=== PATIENT | female | born 1950 | race Caucasian/White ===

== ENCOUNTER 2024-06-18 05:57 | Day surgery (SDC) | payer OTHER ==
[~2024-06-18] VITALS: Ht 154.9 cm; Wt 59.1 kg
[2024-06-18] VITALS (16 sets, daily range): BP systolic 114–180; BP diastolic 55–105
[~2024-06-18 05:57] MED LIST: CLON.5 PO; ESCI20 PO; HYDROCODONE-AC473 ML; MOBIC7.5 MG PO; Norco 5-325 Ta1 EACH PO; PREG100 PO; TRAZ50 PO
[2024-06-18] MEDS ORDERED: CeFAZolin Sodium 2,000 MG in NS 100 ML IV SCH ×2 (06:10→16:00)
[2024-06-18] MEDS ORDERED: OxyCODONE HCL 10 MG TABCR PO SCH (06:10)
[2024-06-18] MEDS ORDERED: Vancomycin HCL 1,000 MG in NS 250 ML IV SCH ×2 (06:10→19:00)
[2024-06-18] MEDS ORDERED: Acetaminophen 500 MG Tab PO SCH ×2 (06:10→08:00)
[2024-06-18] MEDS ORDERED: Lactated Ringer's 1,000 ML IV SCH ×2 (06:10→06:50)
[2024-06-18] MEDS ORDERED: Ropivacaine 0.5% HCl/Pf 123.125 MG,EPINEPHrine HCL 0.25 MG,Ketorolac Tromethamine 15 MG... INFIL SCH (06:10)
[2024-06-18] MEDS ORDERED: Tranexamic Acid 100 ML IV SCH (06:10)
[2024-06-18] MEDS ORDERED: Chlorhexidine Mouth Care 15 ML UDC MT SCH (06:10)
--- NOTE | 2024-06-18 06:39 | NUR ---
INTO SDS VIA WHEELCHAIR. PT REPORTS 11/10 RIGHT HIP PAIN. PT ASKING IMMEDIATELY WHEN SHE WILL BE GETTING MEDICATION FOR ANXIETY. ENCOURAGED PT TO ADDRESS ANXIETY WITH ANESTHESIA PROVIDER. HISTORY AND ALLERGIES REVIEWED. LUNGS CLEAR. FAINT MURMUR AUSCULTATED. 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 Patient reports completing Chlorhexadine shower X2 prior to admission to hospital.Surgical site prepped with 2% Chlorhexidine cloth wipe.
[2024-06-18] MEDS ORDERED: HYDROmorphone HCl/Pf 1MG SYR IV PRN (06:45)
[2024-06-18] MEDS ORDERED: Bisacodyl 10 MG Supp PR PRN (06:50)
[2024-06-18] MEDS ORDERED: Ondansetron HCl 2 MG / ML 2ML Vial IV PRN (06:50)
[2024-06-18] MEDS ORDERED: Metoclopramide HCl 5MG / ML 2ML Vial IV PRN (06:50)
[2024-06-18] MEDS ORDERED: DiphenhydrAMINE HCL 25 MG Cap PO PRN (06:50)
[2024-06-18] MEDS ORDERED: Magnesium Hydroxide Conc 10 ML UDC PO PRN (06:50)
[2024-06-18] MEDS ORDERED: Promethazine HCl 25 MG Tab PO PRN (06:55)
[2024-06-18] MEDS ORDERED: Prochlorperazine Edisylate 10 mg Vial IV PRN (06:55)
[2024-06-18] MEDS ORDERED: OxyCODONE HCL 5 MG TAB PO PRN ×2 (06:55)
[2024-06-18] MEDS ORDERED: ClonazePAM 0.5 MG Tab PO PRN (07:05)
[2024-06-18] MEDS ORDERED: propofoL 50 ML IV ONE (07:15)
[2024-06-18] MEDS ORDERED: Bupivacaine 0.5% Inj 50 ML Vial ONE (07:17)
[2024-06-18] MEDS ORDERED: Midazolam HCl 1MG / ML 2ML Vial ONE (07:18)
[2024-06-18] MEDS ORDERED: FentaNYL Citrate 50 MCG/ML 2 ML Injection ONE (07:18)
[2024-06-18] MEDS ORDERED: Vancomycin HCl 1000 MG ADDvantage ONE (07:54)
[2024-06-18] MEDS ORDERED: Phenylephrine HCl 100 MCG/ML-NS 10MLSYR (1MG/10ML) ONE (08:16)
[2024-06-18] MEDS ORDERED: propofoL 20 ML IV ONE ×3 (08:19→09:50)
[2024-06-18] MEDS ORDERED: Atropine Sulfate 0.4 MG/1 ML Vial ONE (08:27)
[2024-06-18] MEDS ORDERED: Docusate Sodium 100 MG Cap PO SCH (09:00)
[2024-06-18] MEDS ORDERED: Tranexamic Acid 100 ML IV ONE (10:31)
[2024-06-18] MEDS ORDERED: Ondansetron HCl 2 MG / ML 2ML Vial ONE (10:36)
[2024-06-18] MEDS ORDERED: Dexamethasone Sod Phos 10 MG/ML 1ML VIAL ONE (10:36)
[2024-06-18] MEDS ORDERED: Ketorolac Tromethamine 30mg Vial ONE (10:41)
--- NOTE | 2024-06-18 11:31 | NUR ---
PT ARRIVED TO RM 217 FROM PACU AT 1110 PT IN BED. NUMB FROM HIPS TO TOES. DENIES ANY PAIN. DRESSINGS TO R HIP CDI. VSS. LCA W/DIM BASES. HRR. BT HYPO X4. ORIENTED TO USE OF CALL LIGHT. PROVIDED COFEE PER PT REQUEST.
[2024-06-18] MEDS ORDERED: Ketorolac Tromethamine 15mg Vial IV SCH (12:00)
[2024-06-18] MEDS ORDERED: NS 250 ML IV PRN (15:45)
--- NOTE | 2024-06-18 17:14 | NUR ---
SUMMARY PT PAINFUL AT THIS TIME. MEDICATED PER ORDERS FOR PAIN. POLAR PACK IN PLACE. PT SITTING IN RECLINER AT THIS TIME. IV ABX INFUSING PER ORDERS. PT TAKING LARGE AMOUNT OF PO FLUIDS AND VOIDED. WORKED WITH THERAPY. ANXIOUS BUT PLEASANT. CALL LIGHT IN REACH.
[2024-06-18] MEDS ORDERED: TraZODone HCl 50 MG Tab PO SCH (21:00)
[2024-06-19 03:42] VITALS: BP 129/87
[2024-06-19 04:43] LABS: BASOPHILS ABSOLUTE AUTO 0.04 K/mm3 (0.00-0.23); BASOPHILS PERCENT AUTO 1 % (0-2); EOSINOPHILS ABSOLUTE AUTO 0.23 K/mm3 (0.00-0.68); EOSINOPHILS PERCENT AUTO 3 % (0-6); Hematocrit 34.2 % (33.0-51.0); IMMATURE GRAN ABSOLUTE AUTO 0.02 K/mm3 (0.00-0.10); IMMATURE GRAN PERCENT AUTO 0 % (0-1); LYMPHOCYTES ABSOLUTE AUTO 1.21 K/mm3 (0.84-5.20); LYMPHOCYTES PERCENT AUTO 18 % (21-46); MONOCYTES ABSOLUTE AUTO 0.75 K/mm3 (0.16-1.47); MONOCYTES PERCENT AUTO 11 % (4-13); Mean Corpuscular HGB 30.6 pg (26.0-34.0); Mean Corpuscular HGB Conc 32.2 g/dL (31.5-36.5); Mean Corpuscular Volume 95 fL (80-100); Mean Platelet Volume 10.4 fL (9.1-12.4); NEUTROPHILS ABSOLUTE AUTO 4.44 K/mm3 (1.96-9.15); NEUTROPHILS PERCENT AUTO 66 % (41-73); Platelet Count 211 K/mm3 (150-400); RDW Coefficient Variation 14.3 % (11.7-14.2); RDW Standard Deviation 50.4 fL (35.1-46.3); White Blood Cell Count 6.69 K/mm3 (4.00-11.30)
--- NOTE | 2024-06-19 04:56 | NUR ---
SHIFT SUMMARY PT POD 0 R TOTAL HIP. PT HAS BEEN AMBULATING, UP AND VOIDING. TOLERATING PO INTAKE. PAIN HAS BEEN MANAGED WITH MEDS PER EMAR. SURGICAL SITE WNL. POST OP VITALS STABLE. PLAN IS FOR DISCARGE TODAY. BED IN LOWEST POSITION, CALL LIGHT WITHIN REACH.
[2024-06-19 05:04] LABS: Calcium, Blood 8.3 mg/dL (8.5-10.1); Magnesium, Blood 1.9 mg/dL (1.6-2.4); Potassium, Blood 3.8 mmol/L (3.5-5.5)
[2024-06-19 07:19] VITALS: BP 131/85
[2024-06-19] MEDS ORDERED: Aspirin 81 MG Chew PO SCH (09:00)
[2024-06-19] MEDS ORDERED: Trimethoprim/Sulfamethoxazole DS Tab PO SCH (09:00)
[2024-06-19] MEDS ORDERED: ASPI81CH PO (10:46)
[2024-06-19] MEDS ORDERED: OXAYDO5 M1 PO (10:47)
[2024-06-19] MEDS ORDERED: PROMETHAZINE12.5 M1 PO (10:48)
[2024-06-19] MEDS ORDERED: SULTRIDS PO (10:49)
[2024-06-19 11:02] VITALS: BP 126/69
--- NOTE | 2024-06-19 11:11 | NUR ---
DISCHARGED PROVIDED AQUACEL DRESSING CHANGES. REVIEWED DC INSTRUCTIONS W/PT; VERBALIZED UNDERSTANDING. PHENERGAN PRESCRIPTION FAXED TO [employer] PER PT REQUEST. IV DC'D. VSS. PT LEFT UNIT IN WC W/POSSESSIONS, POLAR PACK, AQUACEL DRESSING AND DC PAPERWORK IN HAND TO MEET SON/RIDE OUTSIDE.
== END 2024-06-19 11:17 | disposition home or self-care (01) ==
LOC: ORSCMMR 05:57 → ORD 07:30 → SURS 10:34 → ORSCMMR 06-19 11:17
PROVIDERS: Orthopaedic Surgery
PROC: 0SR90JA Replacement of Right Hip Joint with Synthetic Substitute, Uncemented, Open Approach (ICD-10-PCS; principal; 2024-06-18 07:30)
DX: M16.11 Unilateral primary osteoarthritis, right hip (principal); F41.9 Anxiety disorder, unspecified; F32.A Depression, unspecified; F17.210 Nicotine dependence, cigarettes, uncomplicated; Z79.899 Other long term (current) drug therapy
CPT/HCPCS: 36415; 72170; 80048; 83735; 85025; 97110; 97116; 97162; 97165; 97535; A9270; C1713; C1776; J0171; J0461; J0690; J0735; J1100; J1170; J1885; J2250; J2371; J2405; J2704; J2795; J3010; J3370; J7050; J7120